=== PATIENT | female | born 1985 | race Two or more races ===

== ENCOUNTER 2019-07-07 08:01 | Inpatient (IN) | payer MEDICAID ==
[~2019-07-07] VITALS: Ht 152.4 cm; Wt 72.6 kg
[2019-07-07] MEDS ORDERED: GLYCOPYRROLATE 0.2 MG/ML 2ML VIAL ONE (08:57)
[2019-07-07] MEDS ORDERED: FENTANYL CITRATE/PF 50MCG/ML 2ML VIAL ONE (08:57)
[2019-07-07] MEDS ORDERED: ONDANSETRON HCL 4MG/2ML INJ ONE (08:57)
[2019-07-07] MEDS ORDERED: PHENYLEPHRINE HCL 10 MG/ML 1ML (IV VIAL) IV ONE (08:57)
[2019-07-07] MEDS ORDERED: OXYTOCIN 10 UNITS/ML 1ML ONE (08:57)
[2019-07-07] MEDS ORDERED: CEFAZOLIN SODIUM 1000MG/VIAL ONE (08:57)
[2019-07-07] MEDS ORDERED: MORPHINE SULFATE/PF 1MG/ML 10ML AMP ONE (08:57)
[2019-07-07] MEDS ORDERED: EPHEDRINE SULFATE 50MG/ML VIAL ONE (08:57)
[2019-07-07] MEDS ORDERED: SODIUM CHLORIDE 0.9% 10ML VIAL ONE (08:58)
[2019-07-07] MEDS ORDERED: CITRIC ACID/SODIUM CITRATE SOLN 30ML UDC PO NR (09:45)
[2019-07-07] MEDS: LACTATED RINGERS 1,000 ML IV SCH ×3 (09:48→23:47)
[2019-07-07 10:08] LABS: BASOPHILS % 0.4 % (0.0-2.0); EOSINOPHILS % 0.2 % (0.0-5.0); HEMOGLOBIN. 12.8 g/dL (12.0-16.0); LYMPHOCYTES % 17.6 % (20.0-50.0); MEAN CORPUSCULAR HEMOGLOBIN 26.2 pg (28.0-32.0); MEAN CORPUSCULAR VOLUME 79.5 fL (81.0-99.0); MEAN PLATELET VOLUME 10.1 fl (7.4-10.4); NEUTROPHILS % 75.8 % (40.0-76.0); PLATELET 225 x1000/uL (130-400); RED CELL DISTRIBUTION WIDTH 16.8 % (11.6-14.6)
[2019-07-07 10:19] LABS: INR 0.9; PARTIAL THROMBOPLASTIN TIME 29.2 sec (23.4-31.0); PROTHROMBIN TIME 9.5 sec (9.6-11.0)
[2019-07-07 10:57] LABS: CLARITY URINE CLEAR (CLEAR); COLOR URINE YELLOW (YELLOW); KETONES URINE 2+ (NEGATIVE); LEUKOCYTE ESTERASE URINE NEGATIVE (NEGATIVE); NITRITE URINE NEGATIVE (NEGATIVE); OCCULT BLOOD URINE NEGATIVE (NEGATIVE); PH URINE 6.5 (4.5-8.0); PROTEIN URINE TRACE (NEGATIVE); SPECIFIC GRAVITY URINE 1.014 (1.005-1.030); UROBILINOGEN URINE 0.2 E.U./dL (0.2-1.0)
[2019-07-07 11:23] LABS: *AMPHETAMINES SCREEN URINE NEGATIVE (NEGATIVE); *BARBITURATES SCREEN URINE NEGATIVE (NEGATIVE); *BENZODIAZEPINES SCREEN URINE NEGATIVE (NEGATIVE); *COCAINE SCREEN URINE NEGATIVE (NEGATIVE); METHADONE URINE SCREEN NEGATIVE (NEGATIVE); OPIATES URINE SCREEN NEGATIVE (NEGATIVE)
[2019-07-07 11:24] LABS: CANNABINOID URINE SCREEN NEGATIVE (NEGATIVE); PHENCYCLIDINE URINE SCREEN NEGATIVE (NEGATIVE)
[2019-07-07] MEDS ORDERED: DEXT 5%/LR + PITOCIN 20UNITS/L 1,000 ML IV SCH (11:26)
[2019-07-07] MEDS ORDERED: IBUPROFEN 400MG TABLET PO PRN (11:30)
[2019-07-07] MEDS ORDERED: CEFAZOLIN 2,000 MG in DEXT 5% WATER 100 ML IV SCH (11:30)
[2019-07-07] MEDS ORDERED: LANOLIN OINT 7GM TUBE TOP PRN (11:30)
[2019-07-07] MEDS ORDERED: BISACODYL 10MG SUPP PR PRN (11:30)
[2019-07-07] MEDS ORDERED: RHO(D) IMMUNE GLOBULIN 300 MCG/SYR IM PRN (11:30)
[2019-07-07] MEDS ORDERED: ACETAMINOPHEN WITH CODEINE 300/30MG TABLET PO PRN (11:30)
[2019-07-07] MEDS ORDERED: ONDANSETRON HCL 4MG/2ML INJ IV PRN (11:30)
[2019-07-07] MEDS ORDERED: HEMORRHOIDAL SUPP PR PRN (11:30)
[2019-07-07] MEDS ORDERED: AMPICILLIN 2,000 MG in SODIUM CHLORIDE 0.9% 100 ML IV SCH (12:00)
[2019-07-07 12:09] LABS: HEPATITIS B SURFACE ANTIGEN NEGATIVE
[2019-07-07] MEDS ORDERED: DIPHENHYDRAMINE 50MG/ML VIAL ONE (12:16)
[2019-07-07] MEDS ORDERED: KETOROLAC 60MG/2ML VIAL IM ONE (12:16)
[2019-07-07] MEDS ORDERED: ESMOLOL HCL 10MG/ML 10ML VIAL IV ONE (12:20)
[2019-07-07] MEDS ORDERED: DIPHENHYDRAMINE 50MG/ML VIAL IV PRN (13:00)
[2019-07-07] MEDS ORDERED: NALOXONE HCL 0.4 MG/ML 1ML VIAL IV PRN (13:00)
[2019-07-07] MEDS ORDERED: BUTORPHANOL TARTRATE 2 MG/ML VIAL IV PRN (13:00)
[2019-07-07 14:30] VITALS: BP 115/55
[2019-07-07 15:00] VITALS: BP 117/59
[2019-07-07 16:30] VITALS: BP 103/52
[2019-07-07] MEDS: KETOROLAC 30MG/ML VIAL IV SCH (17:06)
[2019-07-07] MEDS: MAGNESIUM/ALUMINUM HYDROXIDE/SIMETHICONE 30ML UDC PO SCH ×2 (17:30→21:20)
[2019-07-07 17:37] VITALS: BP 96/46
[2019-07-07] MEDS ORDERED: DOCUSATE SODIUM 100MG CAPSULE PO SCH (21:00)
[2019-07-07 23:53] VITALS: BP 84/50
[2019-07-08 04:00] VITALS: BP 85/47
[2019-07-08] MEDS: KETOROLAC 30MG/ML VIAL IV SCH (04:46)
[2019-07-08] MEDS: LACTATED RINGERS 1,000 ML IV SCH (06:40)
[2019-07-08 07:33] LABS: BASOPHILS % 0.3 % (0.0-2.0); EOSINOPHILS % 0.6 % (0.0-5.0); HEMATOCRIT. 30.6 % (36.0-48.0); HEMOGLOBIN. 10.1 g/dL (12.0-16.0); LYMPHOCYTES % 17.2 % (20.0-50.0); MEAN CORPUSCULAR HEMOGLOBIN 26.3 pg (28.0-32.0); MEAN CORPUSCULAR VOLUME 80.1 fL (81.0-99.0); MEAN PLATELET VOLUME 10.1 fl (7.4-10.4); MONOCYTES % 6.8 % (2.0-8.0); NEUTROPHILS % 75.1 % (40.0-76.0); PLATELET 194 x1000/uL (130-400); RED BLOOD CELL COUNT 3.83 mill/uL (4.2-5.4); RED CELL DISTRIBUTION WIDTH 16.6 % (11.6-14.6)
[2019-07-08 08:30] VITALS: BP 92/59
[2019-07-08] MEDS: IBUPROFEN 800MG TABLET PO PRN ×2 (11:16→18:00)
[2019-07-08] MEDS: PRENATAL VIT/FE FUMARATE/FA TABLET PO SCH (11:16)
[2019-07-08] MEDS: SIMETHICONE 80MG TABLET CHEW PO SCH ×3 (11:17→21:18)
[2019-07-08 17:48] VITALS: BP 104/62
[2019-07-08 19:20] VITALS: BP 108/57
[2019-07-08] MEDS: HYDROCODONE/ACETAMINOPHEN 5/325MG TABLET PO PRN (22:54)
[2019-07-08 23:55] VITALS: BP 110/60
[2019-07-09 05:53] VITALS: BP 112/65
[2019-07-09 06:09] VITALS: BP 120/80
[2019-07-09] MEDS: IBUPROFEN 800MG TABLET PO PRN (06:09)
[2019-07-09] MEDS: SIMETHICONE 80MG TABLET CHEW PO SCH (08:26)
[2019-07-09] MEDS: PRENATAL VIT/FE FUMARATE/FA TABLET PO SCH (08:29)
[2019-07-09] MEDS: HYDROCODONE/ACETAMINOPHEN 5/325MG TABLET PO PRN (08:49)
== END 2019-07-09 14:30 | disposition home or self-care (01) | DRG 540 ==
LOC: 8 EST LDRP 08:01 → OBSVTOIN 08:01 → 8EST 14:20
PROVIDERS: ADMIT Obstetrics & Gynecology; ATTEND Obstetrics & Gynecology
PROC: 10D00Z1 Extraction of Products of Conception, Low, Open Approach (ICD-10-PCS; principal; 2019-07-07)
DX: O34.211 Maternal care for low transverse scar from previous cesarean delivery (principal); Z37.0 Single live birth; Z3A.39 39 weeks gestation of pregnancy
CPT/HCPCS: 36415; 80305; 81003; 82947; 85025; 86592; 86703; 86762; 86850; 86900; 87340; 88307; J0290; J0690; J1200; J1885; J2274; J2370; J2405; J2590; J3010; J3490; J7050; J7060; J7120